=== PATIENT | male | born 1955 | race Caucasian/White ===

== ENCOUNTER 2020-11-25 00:22 | Emergency (ER) | payer MEDICARE, SELFPAY ==
[2020-11-25 00:23] VITALS: BP 179/141; PULSE 77; PULSE 79; RESP 16; TEMP 36.2; O2SAT 100; O2SAT 99; BMI 25.8
[2020-11-25] MEDS: Lidocaine 1% (20 ml mdv) 20 ML Vial INFILT (00:40)
--- NOTE | 2020-11-25 01:19 | ED.DCSUM_ITS ---
- ER Visit Summary Date of Service: 11/25/20 Chief Complaint: Laceration History of Present Illness: The patient is a [address] Beltran. Patient reports that he was taking glass out to the trash when he lost his balance fell and the glass broke and he suffered a laceration to his right cheek. His t etanus is up-to-date. He denies any other injuries. No blow to the head or loss consciousness. Is not on anticoagulants. No neck, back, shoulder, wrist, or hip pain. Review of systems: General: No fever, chills, cold sweats. Cardiovascular: No chest pain, palpitations. Respiratory: No cough, shortness of breath, dyspnea on exertion. Gastrointestinal: No abdominal pain, nausea, vomiting, diarrhea, melena, or hematochezia. Genitourinary: No dysuria, frequency, hematuria. Skin: No rash. Neuro: No headache, numbness, weakness. Physical Examination: Vitals: Stable. Afebrile. Head: 2 cm laceration to the right maxilla. Mild active bleeding. No tenderness to palpation. Neck: No vertebral tenderness. Full ROM without difficulty. Cleared by NEXUS criteria. Back: No vertebral tenderness. General: A&O x 3. NAD. Cardiovascular exam: Regular rate and rhythm, no murmur, rub or gallop. Respiratory exam: Chest nontender. No crepitus. Clear to auscultation bilate rally. No wheezes or stridor. Abdominal exam: Soft, nontender, nondistended, normal bowel sounds. No pain in RUQ or LUQ specifically. No peritoneal signs. Extremity: Atraumatic. No pain with range of motion. Emergency Department Course and Treatment: Patient had his wound anesthetized and repaired. Tolerated this well. Treatment Plan: Patient be discharged instructions follow-up his primary care physician in 5 days for suture removal. Return to the emergency department for any worsening symptoms. Disposition: To home in improved and stable condition. Impression: 1. Fall. 2. Laceration right cheek, 2 cm, repaired. Procedure note: Wound was cleansed with chlorhexidine soap. Anesthetized with 1% lidocaine without epinephrine. Copiously irrigated with normal saline. Wound was explored there is no foreign material present. It was closed with 4 simple interrupted 6- 0 ethilon sutures. The patient tolerated it well. This note was generated with [employer] dictation software. It may contain incorrect words, spelling, and punctuation that were not noted in review of the chart prior to signing ED Disposition - Plan for ED Patient: Disposition: Home or Assisted Living Instructions: ED Laceration, Face: Stitches or Tape Referrals: OKSANA BELTRAN [Other] - 5 Days for suture removal
== END 2020-11-25 01:30 | disposition home or self-care (01) ==
LOC: ED 01:17
PROVIDERS: Emergency Provider Emergency Medicine
DX: S01.411A Laceration without foreign body of right cheek and temporomandibular area, initial encounter (principal); K21.9 Gastro-esophageal reflux disease without esophagitis; E11.9 Type 2 diabetes mellitus without complications; I10 Essential (primary) hypertension; E78.00 Pure hypercholesterolemia, unspecified; Z79.84 Long term (current) use of oral hypoglycemic drugs; Z79.899 Other long term (current) drug therapy; W25.XXXA Contact with sharp glass, initial encounter; Y93.89 Activity, other specified; Y92.008 Other place in unspecified non-institutional (private) residence as the place of occurrence of the external cause; Y99.8 Other external cause status
CPT/HCPCS: 12011; 99284

== ENCOUNTER → 2025-09-13 | Outpatient (CLI) | payer MEDICARE, SELFPAY ==
[2025-09-13 18:12] LABS: Anion Gap 12 (5-15); BUN 24 mg/dL (4-19); BUN/Creat Ratio 24.7 RATIO (10-20); Calcium,Total 9.6 mg/dL (7.6-11.0); Carbon Dioxide 25.7 mmol/L (21.0-32.0); Chloride 99 mmol/L (98-108); Cholesterol 117 mg/dL (<=200); Glucose 97 mg/dL (70-99); Low Density Lipoprotein Calc. 55 mg/dL; Potassium 4.1 mmol/L (3.3-5.1); Triglycerides 102 mg/dL; Very Low Density Lipoprotein 20 mg/dL (5-40); cholesterol:hdl ratio screen 2.73
== END | disposition home or self-care (01) ==
LOC: MFPLAB 14:56
PROVIDERS: PCP Family Medicine; Referring Provider Family Medicine; Visit Provider Family Medicine
DX: E11.9 Type 2 diabetes mellitus without complications (principal); I10 Essential (primary) hypertension; E78.5 Hyperlipidemia, unspecified
CPT/HCPCS: 36415; 80048; 80061; 83036